=== PATIENT | male | born 1955 | race Caucasian/White ===

== ENCOUNTER 2022-08-30 14:45 | Outpatient (RCR) | payer MEDICARE ==
[~2022-08-30 14:45] MED LIST: ULTRAM 50MG TAB50 MG PO
== END 2022-09-03 | disposition home or self-care (01) ==
LOC: PT.GENESIS
DX: M25.511 Pain in right shoulder (principal); M25.551 Pain in right hip; M79.604 Pain in right leg

== ENCOUNTER → 2023-06-27 | Outpatient (CLI) | payer MEDICARE | LOC: COL.RAD 07:50 | DX: S22.41XA Multiple fractures of ribs, right side, initial encounter for closed fracture (principal); X58.XXXA Exposure to other specified factors, initial encounter ==

== ENCOUNTER → 2024-03-12 | Outpatient (CLI) | payer MEDICARE | LOC: COL.RAD 12:47 | DX: M89.8X1 Other specified disorders of bone, shoulder (principal); M71.20 Synovial cyst of popliteal space [Baker], unspecified knee; M75.121 Complete rotator cuff tear or rupture of right shoulder, not specified as traumatic; S46.222A Laceration of muscle, fascia and tendon of other parts of biceps, left arm, initial encounter; M19.012 Primary osteoarthritis, left shoulder ==

== ENCOUNTER → 2024-05-04 | Outpatient (CLI) | payer MEDICARE | LOC: COL.RAD 15:08 | DX: M19.012 Primary osteoarthritis, left shoulder (principal); M19.011 Primary osteoarthritis, right shoulder; M25.561 Pain in right knee ==